=== PATIENT | female | born 1985 | race Caucasian/White ===

== ENCOUNTER 2020-02-23 08:00 | Emergency (ER) | payer OTHER, SELFPAY ==
[2020-02-23 08:05] VITALS: BP 122/78; PULSE 61; RESP 17; TEMP 36.8; O2SAT 98; BMI 27.3
--- NOTE | 2020-02-23 08:30 | W.ED.URI ---
HPI - URI/Sore Throat General: Chief Complaint: General Medical Stated Complaint: COVID SYMPTOMS Time Seen by Provider: 02/23/20 08:04 Source: patient Mode of arrival: ambulatory Limitations: no limitations History of Present Illness: HPI Narrative: Patient is a 34-year-old female presents to ED today with complaints of a sore throat and rhinorrhea over the last 3 days. She states yesterday she began developing a nonproductive cough, nausea, headache, and body aches. 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 No fevers. MD elicited complaint: cough, sore throat and rhinorrhea Onset (ago): day(s) Severity: mild Able to tolerate fluids by mouth: Yes Exacerbating factors: nothing Relieving factors: nothing Context: sick contacts (known COVID exposure) Associated symptoms: Reports headache(s), nasal congestion and nausea; Deny abdominal pain, chills, chest pain, ear or mastoid pain, fever(s), sinus pain or vomiting Review of Systems Const: Reports: body aches; Denies: fever(s), chills, change in appetite or change in weight Eyes: Denies: change in vision, blurry vision, photophobia, floaters or seeing flashes ENMT: Reports: throat pain, odynophagia and nasal congestion; Denies: oral sores, ear or mastoid pain, ear discharge or sinus pain Card: Denies: chest pain Resp: Reports: non-productive cough; Denies: dyspnea, productive cough or hemoptysis GI: Reports: nausea; Denies: abdominal pain, vomiting or change in bowel habits Musc: Denies: joint pain Skin/Breast: Denies: rash Neuro: Reports: headache(s) Physical Exam Const: COMMON NORMALS: no acute distress, average body habitus, patient oriented x3, no limitations, healthy appearing, alert and well nourished HENMT: COMMON NORMALS: normocephalic, atraumatic, hearing grossly normal bilaterally, external ears normal, EAC's normal, TM's normal bilaterally, Normal external nose present, Normal nasal mucous membranes and turbinates present, moist oral mucous membranes, oropharynx normal, dentition normal and gingiva normal HEAD & SCALP: normal to inspection, normocephalic and atraumatic FACE & SINUS: normal facial exam and sinuses nontender NOSE: Normal external nose present and Normal nasal mucous membranes and turbinates present EXTERNAL EAR: Yes external ears normal EXTERNAL AUDITORY CANAL: EAC's normal TYMPANIC MEMBRANE: TM's normal bilaterally THROAT: posterior oropharynx normal, tonsils normal and uvula midline Eye: GENERAL EYE: appearance normal, both eyes and all related structures Neck/C-Spine: COMMON NORMALS: full ROM, no lymphadenopathy and no meningeal signs Resp: COMMON NORMALS: normal respiratory effort and clear to auscultation bilaterally AUSCULTATION: clear to auscultation bilaterally Cardio: COMMON NORMALS: regular rate and regular rhythm RATE: regular rate RHYTHM: regular rhythm Neuro: COMMON NORMALS: patient oriented x3 SENSORIUM/ORIENTATION: Yes alert MENINGEAL SIGNS: Yes no meningeal signs Skin: COMMON NORMALS: no rashes or lesions noted GENERAL SKIN EXAM: no rashes or lesions noted Course Vital Signs: Vital signs: Vital Signs Temperature 98.3 F 02/23/20 08:05 Pulse Rate 61 02/23/20 08:05 Respiratory Rate 17 02/23/20 08:05 Blood Pressure 122/78 02/23/20 08:05 Pulse Oximetry 98 02/23/20 08:05 MDM - URI/Sore Throat MDM Narrative: Medical decision making narrative: Patient will be swabbed for COVID and told to quarantine until she gets results. Discharge Plan Discharge Patient Disposition: Home Clinical Impression: Exposure to COVID-19 virus Condition: Stable Prescriptions: No Action phentermine 37.5 mg Tablet 37.5 mg PO DAILY RF: 0 ibuprofen 600 mg Tablet 600 mg PO BID PRN (Reason: Pain) RF: 0 omeprazole 20 mg Tablet,Delayed Release (Dr/Ec) 20 mg PO DAILY RF: 0 Discharge Orders: Discharge Order (Routine); Ordered 02/23/20 Ordered By: Kiki Singleton Activity Restrictions/Additional Instructions: Quarantine until results of your COVID test returns. Discharge Date/Time: 02/23/20 08:52 Coding Level of Care Code ED [employer] for Eugenio Mckinney
[2020-02-23 08:50] VITALS: BP 130/85; PULSE 76; RESP 16; TEMP 36.8; O2SAT 99
[2020-02-25 00:18] LABS: Coronavirus Lab Test PTC See Report
== END 2020-02-23 08:52 | disposition home or self-care (01) ==
PROVIDERS: Emergency Provider Physician Assistant
DX: Z20.828 Contact with and (suspected) exposure to other viral communicable diseases (principal)
CPT/HCPCS: 12345; 87635; 99282

== ENCOUNTER 2020-08-26 20:22 | Emergency (ER) | payer OTHER, SELFPAY ==
[2020-08-26 20:25] VITALS: BP 150/85; PULSE 88; RESP 16; TEMP 36.6; O2SAT 95; BMI 29.2
[2020-08-26] MEDS: eye irrigation 30 mL Btl EYE-LEFT (20:57)
[2020-08-26] MEDS: tetracaine 0.5% Op Soln 4 mL Btl 1 DROP EYE-LEFT (20:57)
[2020-08-26] MEDS: fluorescein 1 mg Strip EYE-LEFT (20:57)
[2020-08-26] MEDS: tobramycin-dexametha Op Susp 5 mL Btl 2 DROP EYE-LEFT (21:32)
[2020-08-26] MEDS: oxyCODONE-APAP 5-325 mg Tablet 2 TAB PO (21:33)
--- NOTE | 2020-08-26 21:50 | W.ED.EYEPROB ---
HPI - Eye Problem General: Chief complaint: Eye Problems Stated complaint: L EYE PAIN, H/A Time Seen by Provider: 08/26/20 20:34 History of Present Illness: HPI Narrative: 35-year-old female with left eye pain. She states that started last night after taking her contact out. She has swelling to the upper and lower lids. She has some blurry vision. She has photophobia to some degree. chief complaint: eye pain and eye redness Onset (ago): hour(s) Onset description: sudden Duration: constant and progressively worsening Location: left eye Eye Symptoms: burning, redness, discharge (Clear) and blurry vision Place: home Mechanism: none Severity: moderate Associated symptoms: Reports headache(s), nausea and rhinorrhea; Denies cough, fever(s), short of breath or vomiting Review of Systems Const: Denies: fever(s) Resp: Denies: dyspnea GI: Reports: nausea Neuro: Reports: headache(s) [facility] ED Female Reproductive History: Date of last menstrual period: 08/01/20 Physical Exam Const: COMMON NORMALS: patient oriented x3 Eye: COMMON NORMALS: Equal, round and reactive pupils present and EOMs intact bilaterally PERIORBITAL: periorbital findings normal CONJUNCTIVA: Yes conjunctival abnormal (Abrasion at about the 1 to 2 o'clock position seen with fluorescein) positive left conjunctival injection; without discharge CORNEA: Yes fluorescein used and other PUPIL: Yes Equal, round and reactive pupils present EOM: No movement deficit Resp: COMMON NORMALS: normal respiratory effort Neuro: COMMON NORMALS: patient oriented x3 Course Vital Signs: Vital signs: Vital Signs Temperature 97.9 F 08/26/20 20:25 Pulse Rate 88 08/26/20 20:25 Respiratory Rate 16 08/26/20 20:25 Blood Pressure 150/85 08/26/20 20:25 Pulse Oximetry 95 08/26/20 20:25 MDM - Eye Problem MDM Narrative: Medical decision making narrative: Patient placed on tobramycin dexamethasone for corneal abrasion. The abrasion is nondendritic. She will follow up with ophthalmology. Discharge Plan Discharge Patient Disposition: Home Clinical Impression: Corneal abrasion Qualifiers: Encounter type: initial encounter Laterality: left Qualified Code(s): S05.02XA - Injury of conjunctiva and corneal abrasion without foreign body, left eye, initial encounter Condition: Stable Prescriptions: No Action phentermine 37.5 mg Tablet 37.5 mg PO DAILY RF: 0 ibuprofen 600 mg Tablet 600 mg PO BID PRN (Reason: Pain) RF: 0 omeprazole 20 mg Tablet,Delayed Release (Dr/Ec) 20 mg PO DAILY RF: 0 Discharge Orders: Discharge ED (Routine); Ordered 08/26/20 Ordered By: Josh Mary Referrals: Seng Hernandez [Referring] - Discharge Diet: Usual diet Patient Instructions: Corneal Abrasion (ED) Activity Restrictions/Additional Instructions: Return for worsening pain or swelling despite treatment, worsening vision changes, any other concerning symptoms. Coding Level of Care Code ED [employer] for Eugenio Mckinney
== END 2020-08-26 21:39 | disposition home or self-care (01) ==
PROVIDERS: Emergency Provider Emergency Medicine
DX: S05.02XA Injury of conjunctiva and corneal abrasion without foreign body, left eye, initial encounter (principal); X58.XXXA Exposure to other specified factors, initial encounter
CPT/HCPCS: 12345; 99281; 99283

== ENCOUNTER 2021-04-02 12:12 | Outpatient (CLI) | payer OTHER, SELFPAY | END 2021-04-02 12:13 | disposition home or self-care (01) | PROVIDERS: PCP Family Medicine; Visit Provider Family Medicine | DX: Z13.220 Encounter for screening for lipoid disorders (principal); Z13.6 Encounter for screening for cardiovascular disorders; F41.1 Generalized anxiety disorder; R63.5 Abnormal weight gain; Z76.89 Persons encountering health services in other specified circumstances | CPT/HCPCS: 36415; 80053; 80061; 84443; 85025 ==